=== PATIENT | female | born 2000 | race Caucasian/White ===

== ENCOUNTER 2021-06-28 16:34 | Inpatient (IN) | payer OTHER, SELFPAY ==
[~2021-06-28] VITALS: Ht 162.6 cm; Wt 78.0 kg
[2021-06-28 17:45] VITALS: BP 139/96
[2021-06-28 18:11] LABS: BASO % 0.6 % (0.0-1.0); EOS # 0.4 10^3/uL (0.0-0.5); HEMATOCRIT 42.7 % (36.0-47.0); HEMOGLOBIN 14.5 g/dl (12.0-15.5); LYMPH # 2.2 10^3/uL (1.5-5.0); LYMPH % 32.8 % (24.0-44.0); MEAN CORPUSCULAR HEMOGLOBIN 29.3 pg (27.0-33.0); MEAN CORPUSCULAR VOLUME 86.3 fl (80.0-96.0); MONO # 0.5 10^3/uL (0.0-0.8); MONO % 7.5 % (2.0-8.0); NEUTROPHILS # 3.6 10^3/uL (1.5-8.5); NEUTROPHILS % 52.7 % (36.0-66.0); PLATELET COUNT, AUTOMATED 358 10^3/uL (150-450); RED BLOOD COUNT 4.95 10^6/uL (4.00-5.40); WHITE BLOOD COUNT 6.8 10^3/uL (4.0-10.0)
[2021-06-28 18:22] LABS: INR 1.01; PROTHROMBIN TIME 13.7 SECONDS (12.7-14.5)
[2021-06-28 18:39] LABS: ALBUMIN 4.6 GM/DL (3.2-5.2); ALT/SGPT 30 U/L (12-78); BILIRUBIN,TOTAL 0.4 MG/DL (0.2-1.0); BLOOD UREA NITROGEN 11 MG/DL (7-18); CALCIUM LEVEL 9.8 MG/DL (8.5-10.1); CARBON DIOXIDE LEVEL 27 MEQ/L (21-32); CHLORIDE LEVEL 107 MEQ/L (98-107); CREATININE FOR GFR 0.79 MG/DL (0.55-1.30); GLOMERULAR FILTRATION RATE > 60.0 (>60); GLUCOSE, FASTING 94 MG/DL (70-100); SODIUM LEVEL 138 MEQ/L (136-145); TOTAL PROTEIN 8.5 GM/DL (6.4-8.2)
[2021-06-28] MEDS ORDERED: VANCOMYCIN HCL 500 MG in D5W MINI-BAG PLUS 100 ML IV ONE (20:45)
[2021-06-28] MEDS ORDERED: [UNRECOGNIZED DRUG - CODE] PO (20:47)
[2021-06-28] MEDS ORDERED: ONDA4TAB6 PO (20:47)
[2021-06-28] MEDS ORDERED: SING10TA32 PO (20:47)
[2021-06-28] MEDS ORDERED: ZONI100C17 PO (20:47)
[2021-06-28] MEDS ORDERED: PROP10TA56 PO (20:47)
[2021-06-28] MEDS ORDERED: HYOS125TA PO (20:47)
[2021-06-28] MEDS ORDERED: TUMS1000 PO (20:47)
[2021-06-28] MEDS ORDERED: MAXA10TA15 PO (20:47)
[2021-06-28] MEDS ORDERED: PROM25TA12 PO (20:47)
[2021-06-28] MEDS ORDERED: LINZ145C PO (20:47)
[2021-06-28] MEDS ORDERED: CETI-24 PO (20:47)
[2021-06-28] MEDS ORDERED: TRIA1CR80 TOP (20:47)
[2021-06-28] MEDS ORDERED: OMEP40CA5 PO (20:47)
[2021-06-28] MEDS ORDERED: ALLE180T33 PO (20:47)
[2021-06-28] MEDS ORDERED: DIPH25CA32 PO (20:47)
[2021-06-28] MEDS ORDERED: CLEO300C2 PO (20:47)
[2021-06-28] MEDS ORDERED: HYDR-4571 PO (20:47)
[2021-06-28] MEDS ORDERED: LORA-674 PO (20:47)
[2021-06-28] MEDS ORDERED: ADV500INH INH (20:47)
[2021-06-28] MEDS ORDERED: CARA1TAB6 PO (20:47)
[2021-06-28] MEDS ORDERED: TIZA10TA PO (20:47)
[2021-06-28] MEDS ORDERED: BELB150M BU (20:47)
[2021-06-28] MEDS ORDERED: HOME MED LIST COMPLETE! XX SCH (20:50)
[2021-06-28 22:00] VITALS: BP 137/95
[2021-06-28] MEDS ORDERED: VANCOMYCIN HCL 1,000 MG, VIAL MATE ADAPTER 1 EACH in NS 250 ML IV SCH (22:00)
[2021-06-28] MEDS ORDERED: tiZANidine 4 MG TAB PO PRN (22:10)
[2021-06-28] MEDS ORDERED: CALCIUM CARBONATE 500 MG CHEW U/D PO PRN (22:10)
[2021-06-28] MEDS: ADVAIR HFA 230/21MCG INHALER INH SCH (22:31)
[2021-06-28] MEDS: MONTELUKAST 10 MG TAB PO SCH (23:32)
[2021-06-28] MEDS: diphenhydrAMINE 25MG CAP PO PRN (23:32)
[2021-06-28] MEDS: SUCRALFATE 1 GM TAB PO SCH (23:32)
[2021-06-28] MEDS: ZONISAMIDE 100 MG CAP (ZONEGRAN) PO SCH (23:32)
[2021-06-28] MEDS: CETIRIZINE (ZyrTEC) 10 MG TAB PO SCH (23:32)
[2021-06-28] MEDS: PROPRANOLOL 10 MG TAB PO SCH (23:33)
[2021-06-29] MEDS: ONDANSETRON 4MG/2ML VIAL IV PRN (01:54)
[2021-06-29] MEDS: NS 1,000 ML IV SCH ×3 (01:54→13:21)
[2021-06-29] MEDS: ACETAMINOPHEN TAB 650MG DOSE (2X325MG) PO PRN (01:54)
[2021-06-29 06:00] VITALS: BP_SYST 108; BP_SYST 110; BP_DIAS 60; BP_DIAS 64
[2021-06-29 06:13] LABS: BASO % 0.3 % (0.0-1.0); EOS # 0.4 10^3/uL (0.0-0.5); EOS % 6.5 % (0.0-3.0); HEMATOCRIT 38.1 % (36.0-47.0); HEMOGLOBIN 13.1 g/dl (12.0-15.5); LYMPH # 2.3 10^3/uL (1.5-5.0); LYMPH % 37.3 % (24.0-44.0); MEAN CORPUSCULAR HEMOGLOBIN 29.6 pg (27.0-33.0); MEAN CORPUSCULAR HGB CONC 34.4 g/dl (32.0-36.5); MONO # 0.5 10^3/uL (0.0-0.8); MONO % 8.2 % (2.0-8.0); NEUTROPHILS # 2.9 10^3/uL (1.5-8.5); NEUTROPHILS % 47.4 % (36.0-66.0); PLATELET COUNT, AUTOMATED 298 10^3/uL (150-450); RED BLOOD COUNT 4.43 10^6/uL (4.00-5.40); WHITE BLOOD COUNT 6.2 10^3/uL (4.0-10.0)
[2021-06-29 06:37] LABS: BLOOD UREA NITROGEN 12 MG/DL (7-18); CALCIUM LEVEL 9.2 MG/DL (8.5-10.1); CARBON DIOXIDE LEVEL 25 MEQ/L (21-32); CHLORIDE LEVEL 109 MEQ/L (98-107); CREATININE FOR GFR 0.75 MG/DL (0.55-1.30); GLOMERULAR FILTRATION RATE > 60.0 (>60); GLUCOSE, FASTING 110 MG/DL (70-100); POTASSIUM SERUM 3.7 MEQ/L (3.5-5.1); SODIUM LEVEL 139 MEQ/L (136-145)
[2021-06-29] MEDS: ADVAIR HFA 230/21MCG INHALER INH SCH ×2 (08:31→20:25)
[2021-06-29] MEDS: VANCOMYCIN HCL 1,000 MG, VIAL MATE ADAPTER 1 EACH in NS 250 ML IV SCH ×3 (08:52→23:30)
[2021-06-29] MEDS: SUCRALFATE 1 GM TAB PO SCH ×2 (09:00→20:49)
[2021-06-29] MEDS: CETIRIZINE (ZyrTEC) 10 MG TAB PO SCH ×2 (09:00→20:49)
[2021-06-29] MEDS ORDERED: LORATADINE 10 MG TAB PO SCH (09:00)
[2021-06-29] MEDS: FEXOFENADINE 60 MG TAB PO SCH (09:00)
[2021-06-29] MEDS: PROPRANOLOL 10 MG TAB PO SCH ×2 (10:39→20:48)
[2021-06-29] MEDS: RIZATRIPTAN MLT 10 MG TAB PO PRN (13:21)
[2021-06-29 14:00] VITALS: BP 110/75
[2021-06-29 15:30] VITALS: BP 137/80
[2021-06-29] MEDS ORDERED: BUPIVACAINE LIPOSOME/PF 1.3% 20ML VIAL (13.3MG/ML)(EXPAREL)(C9290 PER1MG) As Ordered ONE (15:54)
[2021-06-29] MEDS ORDERED: propofoL 200 MG/20 ML VIAL As Ordered ONE ×3 (16:30→17:06)
[2021-06-29] MEDS ORDERED: MIDAZOLAM INJ 2MG/2ML VIAL (J2250 PER 1MG) As Ordered ONE (16:30)
[2021-06-29] MEDS ORDERED: fentaNYL 100 MCG/2 ML INJECTION As Ordered ONE (16:30)
[2021-06-29] MEDS ORDERED: dexameTHASONE 4 MG/ML 1ML VIAL (J1100 PER 1MG) As Ordered ONE (16:52)
[2021-06-29] MEDS ORDERED: ONDANSETRON 4MG/2ML VIAL As Ordered ONE (16:52)
[2021-06-29] MEDS ORDERED: PERCOCET 5MG/325MG TAB PO PRN (17:35)
[2021-06-29] MEDS ORDERED: NORCO, ANEXSIA 5/325MG TABLET (HYDROcodone/ACETAMINOPHEN) PO PRN (17:35)
[2021-06-29] MEDS: MEPERIDINE INJ 25 MG/ML VIAL (J2175) IV PRN ×2 (17:58→18:03)
[2021-06-29] MEDS ORDERED: fentaNYL 100 MCG/2 ML INJECTION IV PRN (18:00)
[2021-06-29] MEDS ORDERED: LR 1,000 ML IV SCH (18:00)
[2021-06-29] MEDS ORDERED: MEPERIDINE INJ 25 MG/ML VIAL (J2175) As Ordered ONE (18:00)
[2021-06-29] MEDS: KETOROLAC 30 MG/ML 1ML VIAL IV SCH ×2 (18:06→23:29)
[2021-06-29 19:45] VITALS: BP 128/79
[2021-06-29 20:45] VITALS: BP 128/77
[2021-06-29] MEDS: diphenhydrAMINE 50MG/ML VIAL (J1200) IV PRN (20:49)
[2021-06-29] MEDS: MONTELUKAST 10 MG TAB PO SCH (20:49)
[2021-06-29] MEDS: ZONISAMIDE 100 MG CAP (ZONEGRAN) PO SCH (20:49)
[2021-06-29] MEDS ORDERED: FLUCONAZOLE 50MG TABLET PO ONE (20:55)
[2021-06-29 23:20] VITALS: BP 121/72
[2021-06-29] MEDS: diphenhydrAMINE 25MG CAP PO PRN (23:30)
[2021-06-30 02:00] VITALS: BP 125/74
[2021-06-30] MEDS: KETOROLAC 30 MG/ML 1ML VIAL IV SCH ×3 (05:21→17:59)
[2021-06-30 05:50] VITALS: BP 125/75
[2021-06-30 06:11] LABS: BASO % 0.2 % (0.0-1.0); HEMATOCRIT 37.7 % (36.0-47.0); HEMOGLOBIN 12.9 g/dl (12.0-15.5); LYMPH # 1.3 10^3/uL (1.5-5.0); LYMPH % 15.5 % (24.0-44.0); MEAN CORPUSCULAR HEMOGLOBIN 29.5 pg (27.0-33.0); MEAN CORPUSCULAR HGB CONC 34.2 g/dl (32.0-36.5); MEAN CORPUSCULAR VOLUME 86.1 fl (80.0-96.0); MONO # 0.5 10^3/uL (0.0-0.8); MONO % 5.8 % (2.0-8.0); NEUTROPHILS # 6.4 10^3/uL (1.5-8.5); NEUTROPHILS % 77.9 % (36.0-66.0); PLATELET COUNT, AUTOMATED 340 10^3/uL (150-450); RED BLOOD COUNT 4.38 10^6/uL (4.00-5.40); WHITE BLOOD COUNT 8.3 10^3/uL (4.0-10.0)
[2021-06-30 06:37] LABS: BLOOD UREA NITROGEN 7 MG/DL (7-18); CALCIUM LEVEL 9.2 MG/DL (8.5-10.1); CARBON DIOXIDE LEVEL 22 MEQ/L (21-32); CHLORIDE LEVEL 110 MEQ/L (98-107); CREATININE FOR GFR 0.65 MG/DL (0.55-1.30); GLOMERULAR FILTRATION RATE > 60.0 (>60); GLUCOSE, FASTING 123 MG/DL (70-100); POTASSIUM SERUM 4.1 MEQ/L (3.5-5.1); SODIUM LEVEL 139 MEQ/L (136-145)
[2021-06-30] MEDS: ADVAIR HFA 230/21MCG INHALER INH SCH ×2 (07:15→20:02)
[2021-06-30] MEDS: CETIRIZINE (ZyrTEC) 10 MG TAB PO SCH ×2 (09:30→21:31)
[2021-06-30] MEDS: LACTOBACILLUS ACIDOPHILUS CAP (BACID) PO SCH ×2 (09:31→17:59)
[2021-06-30] MEDS: SUCRALFATE 1 GM TAB PO SCH ×2 (09:31→21:31)
[2021-06-30] MEDS: FEXOFENADINE 60 MG TAB PO SCH (09:31)
[2021-06-30] MEDS: PROPRANOLOL 10 MG TAB PO SCH ×2 (09:33→21:32)
[2021-06-30] MEDS: VANCOMYCIN HCL 750 MG, VIAL MATE ADAPTER 1 EACH in NS 250 ML IV SCH ×5 (09:35→18:00)
[2021-06-30] MEDS: RIZATRIPTAN MLT 10 MG TAB PO PRN (09:35)
[2021-06-30] MEDS: ACETAMINOPHEN TAB 650MG DOSE (2X325MG) PO PRN (09:36)
[2021-06-30] MEDS ORDERED: HYOSCYAMINE SULFATE 0.125 MG SUBL TABLET PO PRN (10:30)
[2021-06-30] MEDS: OMEPRAZOLE 20MG CAP PO SCH (13:11)
[2021-06-30 14:00] VITALS: BP 122/74
[2021-06-30] MEDS: BELBUCA 150 MCG MT SCH (14:03)
[2021-06-30] MEDS: PROMETHAZINE 25 MG TAB PO PRN (17:59)
[2021-06-30] MEDS: MONTELUKAST 10 MG TAB PO SCH (21:31)
[2021-06-30] MEDS: diphenhydrAMINE 50MG/ML VIAL (J1200) IV PRN (21:31)
[2021-06-30] MEDS: ZONISAMIDE 100 MG CAP (ZONEGRAN) PO SCH (21:31)
[2021-06-30 22:00] VITALS: BP 120/75
[2021-07-01] MEDS ORDERED: UNRESOLVED CLARIFICATION ENTRY XX SCH (00:01)
[2021-07-01] MEDS: KETOROLAC 30 MG/ML 1ML VIAL IV SCH ×4 (00:49→17:10)
[2021-07-01] MEDS: VANCOMYCIN HCL 750 MG, VIAL MATE ADAPTER 1 EACH in NS 250 ML IV SCH ×4 (00:49→18:16)
[2021-07-01 06:00] VITALS: BP 110/67
[2021-07-01] MEDS: LACTOBACILLUS ACIDOPHILUS CAP (BACID) PO SCH ×2 (08:00→17:10)
[2021-07-01] MEDS: CETIRIZINE (ZyrTEC) 10 MG TAB PO SCH ×2 (10:25→21:43)
[2021-07-01] MEDS: FEXOFENADINE 60 MG TAB PO SCH (10:25)
[2021-07-01] MEDS: OMEPRAZOLE 20MG CAP PO SCH (10:25)
[2021-07-01] MEDS: SUCRALFATE 1 GM TAB PO SCH ×2 (10:25→21:42)
[2021-07-01] MEDS: PROPRANOLOL 10 MG TAB PO SCH ×2 (10:27→21:43)
[2021-07-01] MEDS: BELBUCA 150 MCG MT SCH (10:27)
[2021-07-01] MEDS: ADVAIR HFA 230/21MCG INHALER INH SCH ×2 (11:01→20:52)
[2021-07-01] MEDS: ONDANSETRON 4MG/2ML VIAL IV PRN (13:01)
[2021-07-01] MEDS: VANCOMYCIN HCL 500 MG in D5W MINI-BAG PLUS 100 ML IV SCH ×2 (13:02→20:09)
[2021-07-01 14:00] VITALS: BP 132/77
[2021-07-01] MEDS: PROMETHAZINE 25 MG TAB PO PRN (17:10)
[2021-07-01] MEDS: diphenhydrAMINE 50MG/ML VIAL (J1200) IV PRN (21:42)
[2021-07-01] MEDS: ZONISAMIDE 100 MG CAP (ZONEGRAN) PO SCH (21:42)
[2021-07-01] MEDS: MONTELUKAST 10 MG TAB PO SCH (21:42)
[2021-07-01 22:00] VITALS: BP 122/70
[2021-07-02] MEDS: KETOROLAC 30 MG/ML 1ML VIAL IV SCH ×4 (01:01→18:05)
[2021-07-02] MEDS: VANCOMYCIN HCL 750 MG, VIAL MATE ADAPTER 1 EACH in NS 250 ML IV SCH (03:17)
[2021-07-02] MEDS: VANCOMYCIN HCL 500 MG in D5W MINI-BAG PLUS 100 ML IV SCH (04:24)
[2021-07-02] MEDS: ADVAIR HFA 230/21MCG INHALER INH SCH ×2 (07:12→20:42)
[2021-07-02] MEDS: FEXOFENADINE 60 MG TAB PO SCH (08:50)
[2021-07-02] MEDS: CETIRIZINE (ZyrTEC) 10 MG TAB PO SCH ×2 (08:50→21:29)
[2021-07-02] MEDS: PROPRANOLOL 10 MG TAB PO SCH ×2 (08:50→21:30)
[2021-07-02] MEDS: OMEPRAZOLE 20MG CAP PO SCH (08:50)
[2021-07-02] MEDS: LACTOBACILLUS ACIDOPHILUS CAP (BACID) PO SCH ×2 (08:50→18:04)
[2021-07-02] MEDS: SUCRALFATE 1 GM TAB PO SCH ×2 (08:50→21:28)
[2021-07-02] MEDS: BELBUCA 150 MCG MT SCH (08:53)
[2021-07-02 09:27] LABS: BLOOD UREA NITROGEN 11 MG/DL (7-18); CALCIUM LEVEL 9.1 MG/DL (8.5-10.1); CARBON DIOXIDE LEVEL 25 MEQ/L (21-32); CHLORIDE LEVEL 109 MEQ/L (98-107); CREATININE FOR GFR 0.61 MG/DL (0.55-1.30); GLOMERULAR FILTRATION RATE > 60.0 (>60); GLUCOSE, FASTING 90 MG/DL (70-100); POTASSIUM SERUM 3.8 MEQ/L (3.5-5.1); SODIUM LEVEL 140 MEQ/L (136-145)
[2021-07-02] MEDS ORDERED: LORazepam 0.5 MG TAB PO PRN (10:55)
[2021-07-02] MEDS ORDERED: LIDOCAINE 1% MDV 20ML VIAL As Ordered ONE (10:57)
[2021-07-02] MEDS ORDERED: ATIV1TAB10 PO (12:54)
[2021-07-02] MEDS: ONDANSETRON 4MG/2ML VIAL IV PRN ×2 (13:03→21:29)
[2021-07-02] MEDS: VANCOMYCIN HCL 1,000 MG, VIAL MATE ADAPTER 1 EACH in NS 250 ML IV SCH ×2 (13:53→21:28)
[2021-07-02 14:00] VITALS: BP 122/70
[2021-07-02] MEDS: SODIUM CHLORIDE 0.9% INJ 10 ML SYR IV SCH (16:43)
[2021-07-02] MEDS: SODIUM CHLORIDE 0.9% INJ 10 ML SYR IV PRN (18:05)
[2021-07-02] MEDS: ZONISAMIDE 100 MG CAP (ZONEGRAN) PO SCH (21:28)
[2021-07-02] MEDS: diphenhydrAMINE 50MG/ML VIAL (J1200) IV PRN (21:29)
[2021-07-02] MEDS: MONTELUKAST 10 MG TAB PO SCH (21:29)
[2021-07-02 22:00] VITALS: BP 119/85
[2021-07-03] MEDS: KETOROLAC 30 MG/ML 1ML VIAL IV SCH ×4 (00:30→18:06)
[2021-07-03] MEDS: VANCOMYCIN HCL 1,000 MG, VIAL MATE ADAPTER 1 EACH in NS 250 ML IV SCH ×2 (05:32→14:00)
[2021-07-03] MEDS: SODIUM CHLORIDE 0.9% INJ 10 ML SYR IV SCH ×2 (05:33→18:06)
[2021-07-03 06:00] VITALS: BP 115/69
[2021-07-03 06:36] LABS: BASO % 0.5 % (0.0-1.0); EOS # 0.1 10^3/uL (0.0-0.5); EOS % 1.5 % (0.0-3.0); HEMATOCRIT 34.1 % (36.0-47.0); HEMOGLOBIN 11.5 g/dl (12.0-15.5); LYMPH % 23.4 % (24.0-44.0); MEAN CORPUSCULAR HEMOGLOBIN 29.4 pg (27.0-33.0); MEAN CORPUSCULAR HGB CONC 33.7 g/dl (32.0-36.5); MEAN CORPUSCULAR VOLUME 87.2 fl (80.0-96.0); MONO # 0.9 10^3/uL (0.0-0.8); MONO % 10.9 % (2.0-8.0); NEUTROPHILS # 5.3 10^3/uL (1.5-8.5); NEUTROPHILS % 62.9 % (36.0-66.0); PLATELET COUNT, AUTOMATED 259 10^3/uL (150-450); RED BLOOD COUNT 3.91 10^6/uL (4.00-5.40); WHITE BLOOD COUNT 8.4 10^3/uL (4.0-10.0)
[2021-07-03 07:03] LABS: BLOOD UREA NITROGEN 14 MG/DL (7-18); CALCIUM LEVEL 9.1 MG/DL (8.5-10.1); CARBON DIOXIDE LEVEL 28 MEQ/L (21-32); CHLORIDE LEVEL 108 MEQ/L (98-107); GLOMERULAR FILTRATION RATE > 60.0 (>60); GLUCOSE, FASTING 84 MG/DL (70-100); POTASSIUM SERUM 4.2 MEQ/L (3.5-5.1); SODIUM LEVEL 140 MEQ/L (136-145)
[2021-07-03] MEDS: ADVAIR HFA 230/21MCG INHALER INH SCH (08:34)
[2021-07-03] MEDS: SUCRALFATE 1 GM TAB PO SCH ×2 (09:23→20:33)
[2021-07-03] MEDS: FEXOFENADINE 60 MG TAB PO SCH (09:23)
[2021-07-03] MEDS: LACTOBACILLUS ACIDOPHILUS CAP (BACID) PO SCH ×2 (09:24→18:05)
[2021-07-03] MEDS: OMEPRAZOLE 20MG CAP PO SCH (09:24)
[2021-07-03] MEDS: CETIRIZINE (ZyrTEC) 10 MG TAB PO SCH ×2 (09:24→20:33)
[2021-07-03] MEDS: PROPRANOLOL 10 MG TAB PO SCH ×2 (09:24→20:33)
[2021-07-03] MEDS: BELBUCA 150 MCG MT SCH (09:31)
[2021-07-03] MEDS: ONDANSETRON 4MG/2ML VIAL IV PRN (13:26)
[2021-07-03 14:00] VITALS: BP 140/81
[2021-07-03 20:31] VITALS: BP 136/81
[2021-07-03] MEDS: ZONISAMIDE 100 MG CAP (ZONEGRAN) PO SCH (20:33)
[2021-07-03] MEDS: VANCOMYCIN HCL 750 MG, VIAL MATE ADAPTER 1 EACH in NS 250 ML IV SCH ×2 (20:33→22:14)
[2021-07-03] MEDS: MONTELUKAST 10 MG TAB PO SCH (20:33)
[2021-07-03] MEDS: RIZATRIPTAN MLT 10 MG TAB PO PRN (20:46)
[2021-07-03] MEDS: diphenhydrAMINE 50MG/ML VIAL (J1200) IV PRN (22:15)
[2021-07-04] MEDS: KETOROLAC 30 MG/ML 1ML VIAL IV SCH ×3 (00:09→12:36)
[2021-07-04] MEDS: SODIUM CHLORIDE 0.9% INJ 10 ML SYR IV SCH (05:36)
[2021-07-04] MEDS: SODIUM CHLORIDE 0.9% INJ 10 ML SYR IV PRN (05:36)
[2021-07-04] MEDS: ADVAIR HFA 230/21MCG INHALER INH SCH (07:15)
[2021-07-04] MEDS: FEXOFENADINE 60 MG TAB PO SCH (07:50)
[2021-07-04] MEDS: CETIRIZINE (ZyrTEC) 10 MG TAB PO SCH (07:50)
[2021-07-04] MEDS: SUCRALFATE 1 GM TAB PO SCH (07:50)
[2021-07-04] MEDS: LACTOBACILLUS ACIDOPHILUS CAP (BACID) PO SCH (07:50)
[2021-07-04] MEDS: OMEPRAZOLE 20MG CAP PO SCH (07:51)
[2021-07-04] MEDS: VANCOMYCIN HCL 750 MG, VIAL MATE ADAPTER 1 EACH in NS 250 ML IV SCH ×2 (07:51→11:22)
[2021-07-04 07:55] VITALS: BP 122/72
[2021-07-04] MEDS: PROPRANOLOL 10 MG TAB PO SCH (07:55)
[2021-07-04] MEDS: BELBUCA 150 MCG MT SCH (07:56)
[2021-07-04] MEDS: ACETAMINOPHEN TAB 650MG DOSE (2X325MG) PO PRN (10:12)
[2021-07-04 11:29] LABS: BASO % 0.5 % (0.0-1.0); EOS # 0.3 10^3/uL (0.0-0.5); EOS % 3.7 % (0.0-3.0); HEMATOCRIT 36.6 % (36.0-47.0); HEMOGLOBIN 12.3 g/dl (12.0-15.5); LYMPH # 2.1 10^3/uL (1.5-5.0); LYMPH % 23.3 % (24.0-44.0); MEAN CORPUSCULAR HEMOGLOBIN 29.6 pg (27.0-33.0); MEAN CORPUSCULAR HGB CONC 33.6 g/dl (32.0-36.5); MONO # 0.7 10^3/uL (0.0-0.8); MONO % 8.3 % (2.0-8.0); NEUTROPHILS # 5.6 10^3/uL (1.5-8.5); NEUTROPHILS % 63.3 % (36.0-66.0); PLATELET COUNT, AUTOMATED 280 10^3/uL (150-450); RED BLOOD COUNT 4.16 10^6/uL (4.00-5.40); WHITE BLOOD COUNT 8.8 10^3/uL (4.0-10.0)
[2021-07-04 12:05] LABS: BLOOD UREA NITROGEN 14 MG/DL (7-18); CALCIUM LEVEL 9.4 MG/DL (8.5-10.1); CARBON DIOXIDE LEVEL 28 MEQ/L (21-32); CHLORIDE LEVEL 107 MEQ/L (98-107); GLOMERULAR FILTRATION RATE > 60.0 (>60); GLUCOSE, FASTING 91 MG/DL (70-100); POTASSIUM SERUM 3.9 MEQ/L (3.5-5.1); SODIUM LEVEL 140 MEQ/L (136-145); VANCOMYCIN RANDOM 22.6 UG/ML
== END 2021-07-04 14:05 | disposition home health service (06) | DRG 315 ==
LOC: M MS5PR 17:08 → UNDOADMIN 17:08 → M MSPAV 17:08 → EEVIPCON 17:08 → M MS5PR 17:35
PROVIDERS: ADMIT Internal Medicine; ATTEND Family Medicine
PROC: 0JPT03Z Removal of Infusion Device from Trunk Subcutaneous Tissue and Fascia, Open Approach (ICD-10-PCS; 2021-06-28)
PROC: 02HV33Z Insertion of Infusion Device into Superior Vena Cava, Percutaneous Approach (ICD-10-PCS; principal; 2021-07-02 15:00)
DX: T80.212A Local infection due to central venous catheter, initial encounter (principal); R78.81 Bacteremia; Q79.60 Ehlers-Danlos syndrome, unspecified; K31.84 Gastroparesis; Z99.3 Dependence on wheelchair; I49.5 Sick sinus syndrome; I73.00 Raynaud's syndrome without gangrene; Z93.1 Gastrostomy status; Z79.899 Other long term (current) drug therapy; Z88.1 Allergy status to other antibiotic agents; Z88.8 Allergy status to other drugs, medicaments and biological substances; Z91.040 Latex allergy status; R11.2 Nausea with vomiting, unspecified; G43.909 Migraine, unspecified, not intractable, without status migrainosus; J45.909 Unspecified asthma, uncomplicated; F90.9 Attention-deficit hyperactivity disorder, unspecified type; F43.10 Post-traumatic stress disorder, unspecified; F32.A Depression, unspecified; Z90.49 Acquired absence of other specified parts of digestive tract

== ENCOUNTER → 2021-07-09 | Outpatient (REF) | payer OTHER ==
[~2021-07-09] MED LIST: ADV500INH INH; ALLE180T33 PO; ATIV1TAB10 PO; BELB150M BU; CARA1TAB6 PO; CETI-24 PO; CLEO300C2 PO; DIPH25CA32 PO; HYDR-4571 PO; HYOS125TA PO; LINZ145C PO; LORA-674 PO; MAXA10TA15 PO; OMEP40CA5 PO; ONDA4TAB6 PO; PROM25TA12 PO; PROP10TA56 PO; SING10TA32 PO; TIZA10TA PO; TRIA1CR80 TOP; TUMS1000 PO; ZONI100C17 PO; [UNRECOGNIZED DRUG - CODE] PO
[2021-07-09 16:48] LABS: HEMATOCRIT 34.4 % (36.0-47.0); HEMOGLOBIN 11.8 g/dl (12.0-15.5); MEAN CORPUSCULAR HEMOGLOBIN 29.9 pg (27.0-33.0); MEAN CORPUSCULAR HGB CONC 34.3 g/dl (32.0-36.5); MEAN CORPUSCULAR VOLUME 87.1 fl (80.0-96.0); PLATELET COUNT, AUTOMATED 268 10^3/uL (150-450); RED BLOOD COUNT 3.95 10^6/uL (4.00-5.40); WHITE BLOOD COUNT 5.8 10^3/uL (4.0-10.0)
[2021-07-09 17:13] LABS: BLOOD UREA NITROGEN 13 MG/DL (7-18); C REACTIVE PROTEIN QUANTITATIV 0.53 MG/DL (0.00-0.30); CALCIUM LEVEL 8.8 MG/DL (8.5-10.1); CARBON DIOXIDE LEVEL 24 MEQ/L (21-32); CHLORIDE LEVEL 110 MEQ/L (98-107); CREATININE FOR GFR 0.96 MG/DL (0.55-1.30); GLOMERULAR FILTRATION RATE > 60.0 (>60); GLUCOSE, FASTING 86 MG/DL (70-100); POTASSIUM SERUM 3.8 MEQ/L (3.5-5.1); SODIUM LEVEL 141 MEQ/L (136-145); VANCOMYCIN RANDOM 22.3 UG/ML
== END ==
LOC: M LAB REF 15:43
PROVIDERS: ATTEND Internal Medicine Infectious Disease
DX: T80.211A Bloodstream infection due to central venous catheter, initial encounter (principal)

== ENCOUNTER 2021-08-31 10:07 | Emergency (ER) | payer OTHER ==
[~2021-08-31] VITALS: Ht 162.6 cm; Wt 80.1 kg
[2021-08-31] MEDS ORDERED: GASTROGRAFIN SOLUTION 30ML (Q9963) JT STA (11:24)
[2021-08-31 13:04] VITALS: BP 140/90
== END 2021-08-31 14:07 | disposition home or self-care (01) ==
LOC: M ED 10:07
DX: K94.29 Other complications of gastrostomy (principal); J45.909 Unspecified asthma, uncomplicated; K31.84 Gastroparesis; R00.0 Tachycardia, unspecified; Z79.899 Other long term (current) drug therapy
CPT/HCPCS: 74018; 99283; Q9963

== ENCOUNTER → 2022-02-14 | Outpatient (CLI) | payer OTHER ==
[~2022-02-14] MED LIST changes: -ZONI100C17 PO; +ZONI100C67 PO
== END ==
LOC: M PLAIMG 07:00
PROVIDERS: ATTEND Nurse Practitioner Family
DX: M54.16 Radiculopathy, lumbar region (principal)

== ENCOUNTER → 2022-06-19 | Outpatient (REF) | payer OTHER | LOC: M WUC 19:51 | PROVIDERS: ATTEND Physician Assistant | DX: N39.0 Urinary tract infection, site not specified (principal) ==

== ENCOUNTER → 2022-06-26 | Outpatient (CLI) | payer OTHER ==
[2022-06-26 16:34] LABS: BASO % 0.3 % (0.0-1.0); EOS # 0.1 10^3/uL (0.0-0.5); HEMATOCRIT 35.9 % (36.0-47.0); HEMOGLOBIN 11.9 g/dl (12.0-15.5); LYMPH # 1.5 10^3/uL (1.5-5.0); LYMPH % 26.3 % (24.0-44.0); MEAN CORPUSCULAR HEMOGLOBIN 29.9 pg (27.0-33.0); MEAN CORPUSCULAR HGB CONC 33.1 g/dl (32.0-36.5); MEAN CORPUSCULAR VOLUME 90.2 fl (80.0-96.0); MONO # 0.4 10^3/uL (0.0-0.8); MONO % 6.8 % (2.0-8.0); NEUTROPHILS # 3.7 10^3/uL (1.5-8.5); NEUTROPHILS % 64.9 % (36.0-66.0); PLATELET COUNT, AUTOMATED 224 10^3/uL (150-450); RED BLOOD COUNT 3.98 10^6/uL (4.00-5.40); WHITE BLOOD COUNT 5.8 10^3/uL (4.0-10.0)
[2022-06-26 18:10] LABS: GC DNA AMPLIFICATION NEGATIVE (NEGATIVE)
== END ==
LOC: M WUC 14:23
PROVIDERS: ATTEND Physician Assistant
DX: R30.0 Dysuria (principal)

== ENCOUNTER 2022-07-08 23:08 | Emergency (ER) | payer OTHER ==
[~2022-07-08] VITALS: Ht 162.6 cm; Wt 64.5 kg
[2022-07-09 00:44] LABS: APPEARANCE, URINE MANUAL CLOUDY (CLEAR); COLOR, URINE MANUAL YELLOW (YELLOW)
[2022-07-09 00:45] LABS: BILIRUBIN, URINE MANUAL NEGATIVE (NEGATIVE); BLOOD URINE MANUAL POSITIVE (NEGATIVE); GLUCOSE, URINE (UA) MANUAL NEGATIVE (NEGATIVE); KETONE, URINE MANUAL NEGATIVE (NEGATIVE); LEUKOCYTE ESTERASE, URINE MAN POSITIVE (NEGATIVE); NITRITE, URINE MANUAL NEGATIVE (NEGATIVE); PROTEIN, URINE MANUAL 2+ mg/dL (NEGATIVE); UROBILINOGEN, URINE MANUAL NORMAL (NORMAL)
[2022-07-09 00:55] LABS: RBC, URINE 15-20 /hpf (0-3); SQUAMOUS EPITHELIAL CELL URINE SMALL AMOUNT /hpf (SMALL AMT); WBC, URINE TNTC /hpf (0-3)
[2022-07-09 00:56] LABS: BACTERIA, URINE SMALL AMOUNT; HYALINE CAST, URINE 0-1 /lpf (0-1); MUCUS, URINE MOD AMOUNT (NEGATIVE)
[2022-07-09 02:21] LABS: HEMATOCRIT 35.5 % (36.0-47.0); HEMOGLOBIN 11.9 g/dl (12.0-15.5); MEAN CORPUSCULAR HEMOGLOBIN 30.3 pg (27.0-33.0); MEAN CORPUSCULAR HGB CONC 33.5 g/dl (32.0-36.5); MEAN CORPUSCULAR VOLUME 90.3 fl (80.0-96.0); PLATELET COUNT, AUTOMATED 224 10^3/uL (150-450); RED BLOOD COUNT 3.93 10^6/uL (4.00-5.40); WHITE BLOOD COUNT 6.7 10^3/uL (4.0-10.0)
[2022-07-09 02:41] LABS: CARBON DIOXIDE LEVEL 26 MMOL/L (20-31); CHLORIDE LEVEL 106 MMOL/L (98-107); POTASSIUM SERUM 3.3 MMOL/L (3.5-5.1); SODIUM LEVEL 141 MMOL/L (136-145)
[2022-07-09 02:42] LABS: ALBUMIN 4.4 G/DL (3.2-5.2)
[2022-07-09 02:47] LABS: ALKALINE PHOSPHATASE 91 U/L (46-116); BLOOD UREA NITROGEN 12 MG/DL (9-23); CALCIUM LEVEL 9.3 MG/DL (8.5-10.1); GLUCOSE, FASTING 93 MG/DL (60-100)
[2022-07-09 02:48] LABS: ALT/SGPT 14 U/L (7.0-40); AST/SGOT 18 U/L (<34)
[2022-07-09 02:49] LABS: BILIRUBIN,TOTAL 0.4 MG/DL (0.3-1.2); CREATININE FOR GFR 0.71 MG/DL (0.55-1.30); GLOMERULAR FILTRATION RATE > 60.0 (>60); TOTAL PROTEIN 6.9 G/DL (5.7-8.2)
[2022-07-09] MEDS ORDERED: PHENAZOPYRIDINE 100 MG TAB PO ONE (03:05)
[2022-07-09] MEDS ORDERED: NS 1,000 ML IV ONE (03:05)
[2022-07-09] MEDS ORDERED: KETOROLAC 30 MG/ML 1ML VIAL IV ONE ×2 (03:05→06:50)
[2022-07-09] MEDS ORDERED: CIPROFLOXACIN 400 MG in IV 1 EA IV ONE (04:00)
[2022-07-09 04:13] LABS: HCG, SERUM QUALITATIVE NEGATIVE (NEGATIVE)
[2022-07-09 04:15] VITALS: BP 107/55
[2022-07-09] MEDS ORDERED: CIPR-249 PO (06:47)
[2022-07-09] MEDS ORDERED: PYRI1TAB5 PO (06:50)
== END 2022-07-09 08:10 | disposition home or self-care (01) ==
LOC: M ED 23:08
DX: R33.9 Retention of urine, unspecified (principal); N39.0 Urinary tract infection, site not specified; N31.9 Neuromuscular dysfunction of bladder, unspecified; Z79.899 Other long term (current) drug therapy; Z91.89 Other specified personal risk factors, not elsewhere classified; Z88.5 Allergy status to narcotic agent; Z88.8 Allergy status to other drugs, medicaments and biological substances
CPT/HCPCS: 51702; 74176; 80053; 81000; 81015; 83605; 84703; 85027; 87040; 87088; 87186; 96374; 96375; 99285; J0744; J1885

== ENCOUNTER → 2022-08-01 | Outpatient (CLI) | payer OTHER ==
[~2022-08-01] MED LIST changes: +CIPR-249 PO; +PYRI1TAB5 PO
== END ==
LOC: M WUC 08:57
PROVIDERS: ATTEND Student in an Organized Health Care Education/Training Program
DX: M54.6 Pain in thoracic spine (principal)

== ENCOUNTER 2022-10-09 14:55 | Emergency (ER) | payer OTHER, SELFPAY ==
[~2022-10-09] VITALS: Ht 162.6 cm; Wt 61.4 kg
[~2022-10-09 14:55] MED LIST changes: +DIPH-435 PO; -DIPH25CA32 PO; +MONT-5 PO; -SING10TA32 PO
[2022-10-09] MEDS ORDERED: LIDOCAINE 2% 5ML JELLY UROJET TOP ONE (17:25)
[2022-10-09] MEDS ORDERED: NS 1,000 ML IV ONE (17:25)
[2022-10-09 18:19] LABS: BASO % 0.4 % (0.0-1.0); EOS % 0.4 % (0.0-3.0); HEMATOCRIT 39.5 % (36.0-47.0); LYMPH # 1.4 10^3/uL (1.5-5.0); LYMPH % 15.5 % (24.0-44.0); MEAN CORPUSCULAR HEMOGLOBIN 29.6 pg (27.0-33.0); MEAN CORPUSCULAR HGB CONC 32.9 g/dl (32.0-36.5); MONO # 0.5 10^3/uL (0.0-0.8); MONO % 5.4 % (2.0-8.0); PLATELET COUNT, AUTOMATED 241 10^3/uL (150-450); RED BLOOD COUNT 4.39 10^6/uL (4.00-5.40); WHITE BLOOD COUNT 8.9 10^3/uL (4.0-10.0)
[2022-10-09 18:42] LABS: LIPASE 24 U/L (12-53)
[2022-10-09 18:47] LABS: ALKALINE PHOSPHATASE 90 U/L (46-116); ALT/SGPT 24 U/L (7.0-40); AST/SGOT 23 U/L (<34); BILIRUBIN,DIRECT < 0.1 MG/DL (<0.4); BILIRUBIN,TOTAL 0.3 MG/DL (0.3-1.2); BLOOD UREA NITROGEN 8 MG/DL (9-23); CALCIUM LEVEL 9.2 MG/DL (8.5-10.1); CARBON DIOXIDE LEVEL 25 MMOL/L (20-31); CHLORIDE LEVEL 105 MMOL/L (98-107); CREATININE FOR GFR 0.63 MG/DL (0.55-1.30); GLOMERULAR FILTRATION RATE > 60.0 (>60); GLUCOSE, FASTING 90 MG/DL (60-100); POTASSIUM SERUM 3.5 MMOL/L (3.5-5.1); SODIUM LEVEL 139 MMOL/L (136-145)
[2022-10-09] MEDS ORDERED: ONDANSETRON 4MG 2ML VIAL IV ONE (19:00)
[2022-10-09] MEDS ORDERED: ONDA4TAB6 PO (21:10)
[2022-10-09] MEDS ORDERED: OMEP40CA4 PO (21:10)
[2022-10-09] MEDS ORDERED: PROP10TA56 PO (21:10)
[2022-10-09] MEDS ORDERED: VENTAER INH (21:10)
[2022-10-09] MEDS ORDERED: PROM25TA12 PO (21:10)
[2022-10-09] MEDS ORDERED: ZONI100C67 PO (21:10)
[2022-10-09 21:24] VITALS: BP 113/61
== END 2022-10-09 21:59 | disposition home or self-care (01) ==
LOC: M ED 14:55
DX: R11.0 Nausea (principal); M62.81 Muscle weakness (generalized); Z76.0 Encounter for issue of repeat prescription; K21.9 Gastro-esophageal reflux disease without esophagitis; J45.909 Unspecified asthma, uncomplicated; G43.909 Migraine, unspecified, not intractable, without status migrainosus; Z79.82 Long term (current) use of aspirin; Z79.810 Long term (current) use of selective estrogen receptor modulators (SERMs); Z79.899 Other long term (current) drug therapy; Z79.83 Long term (current) use of bisphosphonates; Z88.5 Allergy status to narcotic agent; Z91.048 Other nonmedicinal substance allergy status
CPT/HCPCS: 51701; 72148; 80048; 80076; 81001; 83690; 85025; 96374; 99284; J2405

== ENCOUNTER → 2023-03-11 | Outpatient (CLI) | payer OTHER ==
[~2023-03-11] MED LIST changes: -MAXA10TA15 PO; +OMEP40CA4 PO; +RIZA10TA66 PO; +VENTAER INH
== END ==
LOC: M WHC 08:07
PROVIDERS: ATTEND Nurse Practitioner Family
DX: O92.6 Galactorrhea (principal)

== ENCOUNTER 2023-03-19 09:24 | Emergency (ER) | payer OTHER ==
[~2023-03-19] VITALS: Ht 162.6 cm; Wt 75.0 kg
[2023-03-19 11:49] LABS: BASO % 0.4 % (0.0-1.0); EOS # 0.2 10^3/uL (0.0-0.5); EOS % 2.4 % (0.0-3.0); HEMATOCRIT 41.6 % (36.0-47.0); HEMOGLOBIN 14.2 g/dl (12.0-15.5); LYMPH # 1.5 10^3/uL (1.5-5.0); LYMPH % 20.9 % (24.0-44.0); MEAN CORPUSCULAR HEMOGLOBIN 30.3 pg (27.0-33.0); MEAN CORPUSCULAR HGB CONC 34.1 g/dl (32.0-36.5); MEAN CORPUSCULAR VOLUME 88.9 fl (80.0-96.0); MONO # 0.5 10^3/uL (0.0-0.8); MONO % 7.8 % (2.0-8.0); NEUTROPHILS # 4.7 10^3/uL (1.5-8.5); NEUTROPHILS % 68.2 % (36.0-66.0); PLATELET COUNT, AUTOMATED 245 10^3/uL (150-450); RED BLOOD COUNT 4.68 10^6/uL (4.00-5.40); WHITE BLOOD COUNT 6.9 10^3/uL (4.0-10.0)
[2023-03-19] MEDS ORDERED: NS 1,000 ML IV ONE (12:15)
[2023-03-19 12:21] LABS: LIPASE 24 U/L (12-53)
[2023-03-19 12:23] LABS: ALBUMIN 4.2 G/DL (3.2-5.2); ALKALINE PHOSPHATASE 99 U/L (46-116); ALT/SGPT 11 U/L (7.0-40); AST/SGOT 13 U/L (<34); BILIRUBIN,DIRECT 0.2 MG/DL (<0.4); BILIRUBIN,TOTAL 0.6 MG/DL (0.3-1.2); BLOOD UREA NITROGEN 9 MG/DL (9-23); CALCIUM LEVEL 9.5 MG/DL (8.5-10.1); CARBON DIOXIDE LEVEL 27 MMOL/L (20-31); CHLORIDE LEVEL 103 MMOL/L (98-107); CREATININE FOR GFR 0.63 MG/DL (0.55-1.30); GLOMERULAR FILTRATION RATE > 60.0 (>60); GLUCOSE, FASTING 95 MG/DL (60-100); POTASSIUM SERUM 4.1 MMOL/L (3.5-5.1); SODIUM LEVEL 139 MMOL/L (136-145); TOTAL PROTEIN 7.6 G/DL (5.7-8.2)
[2023-03-19] MEDS ORDERED: ISOVUE-370 76% 100ML VIAL As Ordered ONE (13:03)
[2023-03-19 13:22] LABS: HCG, SERUM QUALITATIVE NEGATIVE (NEGATIVE)
[2023-03-19 14:18] LABS: GC DNA AMPLIFICATION NEGATIVE (NEGATIVE)
[2023-03-19 14:22] VITALS: BP 138/90; TEMP 98.1; O2SAT 100
== END 2023-03-19 14:25 | disposition home or self-care (01) ==
LOC: M ED 09:24
DX: K31.84 Gastroparesis (principal); K94.29 Other complications of gastrostomy; Q79.60 Ehlers-Danlos syndrome, unspecified; Z87.898 Personal history of other specified conditions; Z79.899 Other long term (current) drug therapy; Z91.89 Other specified personal risk factors, not elsewhere classified; Z88.8 Allergy status to other drugs, medicaments and biological substances; Z88.5 Allergy status to narcotic agent
CPT/HCPCS: 74177; 80048; 80076; 81001; 83690; 84703; 85025; 87070; 87077; 87186; 87205; 87661; 87810; 87850; 99283; Q9967

== ENCOUNTER → 2023-04-01 | Outpatient (REF) | payer OTHER | LOC: M WUC 19:19 | PROVIDERS: ATTEND Physician Assistant | DX: L02.211 Cutaneous abscess of abdominal wall (principal) ==

== ENCOUNTER → 2023-08-26 | Outpatient (CLI) | payer OTHER ==
[~2023-08-26] MED LIST changes: +ISOVUE-300 61% 100ML VIAL As Ordered ONE; +LIDOCAINE 2% JELLY 6ML SYRINGE As Ordered ONE; +LORA-1041 PO; -LORA-674 PO; +MIRT1TAB16 PO; +OLAN5ZYD PO; +TRAN1DIS4 TOP; +VENL75CA47 PO
[2023-08-26 09:20] VITALS: TEMP 98.2
[2023-08-26 09:44] LABS: HEMATOCRIT 38.9 % (36.0-47.0); HEMOGLOBIN 13.3 g/dl (12.0-15.5); MEAN CORPUSCULAR HEMOGLOBIN 30.6 pg (27.0-33.0); MEAN CORPUSCULAR HGB CONC 34.2 g/dl (32.0-36.5); MEAN CORPUSCULAR VOLUME 89.4 fl (80.0-96.0); PLATELET COUNT, AUTOMATED 246 10^3/uL (150-450); RED BLOOD COUNT 4.35 10^6/uL (4.00-5.40); WHITE BLOOD COUNT 4.7 10^3/uL (4.0-10.0)
[2023-08-26 09:58] LABS: INR 1.08; PROTHROMBIN TIME 13.7 SECONDS (12.5-14.5)
[2023-08-26 12:56] VITALS: BP 123/76; O2SAT 100
== END ==
LOC: M IRPRO 08:56
PROVIDERS: ATTEND Surgery
DX: L25.8 Unspecified contact dermatitis due to other agents (principal); N18.6 End stage renal disease; Z43.1 Encounter for attention to gastrostomy; M54.2 Cervicalgia; M25.522 Pain in left elbow; M25.511 Pain in right shoulder
CPT/HCPCS: 49450; 49451; 72040; 73030; 73080; 85027; 85610; C1729; Q9967